=== PATIENT | male | born 1965 | race Caucasian/White ===

== ENCOUNTER 2017-05-07 10:28 | Emergency (ER) | payer OTHER ==
[~2017-05-07] VITALS: Ht 177.8 cm; Wt 108.1 kg
[~2017-05-07 10:28] MED LIST: CIPR-9 PO; METF1000 PO; NOVO7030P2 SQ; PEN29MIS SQ
[2017-05-07 10:35] VITALS: BP 158/83; PULSE 88; RESP 18; TEMP 98.8; O2SAT 98
[2017-05-07 10:45] VITALS: BP 158/83; PULSE 88; RESP 18; TEMP 98.8; O2SAT 98
--- NOTE | 2017-05-07 12:28 | RADRPT ---
EXAM DATE/TIME: 05/07/2017 12:15 [place] COMPARISON: No previous studies available for comparison. INDICATIONS : Short of breath, cough, fever, chest pain with cough MEDICAL HISTORY : Diabetes mellitus type I. SURGICAL HISTORY : spinal,neck ENCOUNTER: Initial ACUITY: 1 month PAIN SCORE: 9/10 LOCATION: Bilateral chest FINDINGS: PA and lateral views of the chest demonstrate minimal densities within the lower lobes. Heart normal size. No consolidation or pleural effusion. The cardiomediastinal contours are unremarkable. Osseou s structures are intact. CONCLUSION: Minimal densities in the lower lobes likely subsegmental atelectasis. Sukumar May MD on May 07, 2017 at 12:25 Board Certified Radiologist. This report was verified electronically.
[2017-05-07] MEDS ORDERED: MELO15TA20 PO (12:39)
[2017-05-07] MEDS ORDERED: BENZ100 PO (12:39)
[2017-05-07] MEDS ORDERED: AZIT250T3 PO (12:39)
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
== END 2017-05-07 12:54 | disposition home or self-care (01) ==
LOC: PHEFT 10:28
DX: J40 Bronchitis, not specified as acute or chronic (principal); M25.561 Pain in right knee; M25.551 Pain in right hip; E11.9 Type 2 diabetes mellitus without complications; Z79.899 Other long term (current) drug therapy; Z79.4 Long term (current) use of insulin
CPT/HCPCS: 71046; 99283